=== PATIENT | female | born 1970 | race Caucasian/White ===

== ENCOUNTER 2020-11-22 19:52 | Inpatient (IN) ==
[2020-11-22] MEDS ORDERED: SODIUM CHLORIDE 0.9% 1,000 ML IV STA (20:12)
[2020-11-22] MEDS ORDERED: HYDROmorphone 2 MG/1 ML VIAL IV STA (20:29)
[2020-11-22 20:30] LABS: Bilirubin,Urine Negative (Negative); Blood, Urine Large mg/dL (Negative); Glucose,Urine (UA) 150 mg/dL (Negative); Ketones,Urine Negative (Negative); Nitrite,Urine Negative (Negative); Protein,Urine >=500 MG/DL; RBC,Urine 2093 /HPF (0-4); Urine Appearance CLOUDY (Clear); Urine Color Red (Yellow); Urine Specific Gravity 1.025 (1.001-1.035); Urine Urobilinogen < 2.0 EU/DL (0.2-1.0)
[2020-11-22 20:33] LABS: Basophils # 0.1 10*3/uL (0.0-0.2); Basophils % 0.4 % (0.0-0.8); Eosinophils # 0.2 10*3/uL (0.0-0.87); Eosinophils % 1.6 % (0.00-10.9); Hematocrit 31.3 VOL% (35.7-47.0); Hemoglobin 9.8 GM/DL (12.0-16.0); Immature Granulocytes % 0.3 %; Immature Granulocytes Absolute 0.05 #; Lymphocytes % 20.8 % (21.3-54.2); Mean Corpuscular HGB Conc 31.3 GM/DL (32-36); Mean Platelet Volume 9.5 FL (9.6-12.0); Monocytes % 6.4 % (1.7-12.7); Neutrophils % 70.5 % (38.7-73.9); Platelet Count 427 T/CUMM (130-400); Red Blood Count 3.77 MC/CUMM (3.8-5.5); Red Cell Distribution Width 14.1 % (9.3-17.3); White Blood Count 14.4 T/CUMM (4-12)
[2020-11-22 20:54] LABS: Alanine Aminotransferase 12 U/L (13-56); Albumin 2.8 G/DL (3.4-5.0); Alkaline Phosphatase 61 U/L (45-117); Aspartate Amino Transferase 8 U/L (0-37); Bilirubin,Total < 0.39 MG/DL (0.2-1.0); Blood Urea Nitrogen 40 MG/DL (7-18); Calcium 8.4 MG/DL (8.5-10.1); Carbon Dioxide 21 MMOL/L (21-32); Estimated Glom Filtration Rate 32 ML/MIN; Glucose 228 MG/DL (74-106); Osmolality,Calculated 291.7 MOS/KG (273-304); Potassium 5.2 MMOL/L (3.5-5.1); Sodium 138 MMOL/L (136-145); Total Protein 7.7 G/DL (6.4-8.2)
[2020-11-22] MEDS ORDERED: cefTRIAXone 1,000 MG in SODIUM CHLORIDE 0.9% 100 ML IV STA (22:17)
[2020-11-23] MEDS: FLUCONAZOLE INJ 400 MG/200 ML PREMIX IV SCH ×2 (00:07→22:19)
[2020-11-23] MEDS ORDERED: GLUCAGON 1 MG VIAL IM PRN (00:34)
[2020-11-23] MEDS ORDERED: DEXTROSE 50% 25 GM/50 ML VIAL IV PRN (00:34)
[2020-11-23] MEDS ORDERED: ENOXAPARIN 40 MG/0.4 ML SYRINGE SUBCUT SCH (01:00)
[2020-11-23] MEDS ORDERED: OXYBUTYNIN 5 MG TABLET PO SCH (01:00)
[2020-11-23] MEDS: MORPHINE 4 MG/1 ML VIAL IV PRN ×3 (03:19→20:22)
[2020-11-23] MEDS: carvediloL 12.5 MG TABLET PO SCH ×3 (03:32→20:22)
[2020-11-23] MEDS: HEPARIN 5,000 UNIT/1 ML VIAL SUBCUT SCH ×2 (04:15→11:23)
[2020-11-23 05:21] LABS: Basophils # 0.1 10*3/uL (0.0-0.2); Basophils % 0.5 % (0.0-0.8); Eosinophils # 0.1 10*3/uL (0.0-0.87); Eosinophils % 1.1 % (0.00-10.9); Hematocrit 30.6 VOL% (35.7-47.0); Hemoglobin 9.7 GM/DL (12.0-16.0); Immature Granulocytes % 0.4 %; Immature Granulocytes Absolute 0.05 #; Lymphocytes # 3.5 10*3/uL (1.4-4.0); Lymphocytes % 30.4 % (21.3-54.2); Mean Corpuscular HGB Conc 31.7 GM/DL (32-36); Mean Corpuscular Volume 85.5 FL (87-102); Monocytes % 7.5 % (1.7-12.7); Neutrophils % 60.1 % (38.7-73.9); Platelet Count 451 T/CUMM (130-400); Red Blood Count 3.58 MC/CUMM (3.8-5.5); White Blood Count 11.4 T/CUMM (4-12)
[2020-11-23 05:49] LABS: Osmolality,Calculated 290.5 MOS/KG (273-304); Potassium 4.6 MMOL/L (3.5-5.1)
[2020-11-23] MEDS ORDERED: MAGNESIUM SULF RIDER 4 GM/100 ML PREMIX IV ONE (08:00)
[2020-11-23] MEDS: PANTOPRAZOLE 40 MG TABLET PO SCH (09:08)
[2020-11-23] MEDS: OXYBUTYNIN 5 MG TABLET PO SCH ×3 (09:08→20:22)
[2020-11-23] MEDS: hydrALAZINE 25 MG TABLET PO SCH ×3 (09:08→20:22)
[2020-11-23] MEDS: INSULIN LISPRO 100 UNIT/ML SUBCUT SCH ×4 (09:09→21:25)
[2020-11-23] MEDS: cefTRIAXone 1,000 MG in SODIUM CHLORIDE 0.9% 100 ML IV SCH (20:22)
[2020-11-24 05:16] LABS: Basophils # 0.1 10*3/uL (0.0-0.2); Basophils % 0.5 % (0.0-0.8); Eosinophils # 0.2 10*3/uL (0.0-0.87); Eosinophils % 2.3 % (0.00-10.9); Hematocrit 27.4 VOL% (35.7-47.0); Hemoglobin 8.3 GM/DL (12.0-16.0); Immature Granulocytes % 0.2 %; Immature Granulocytes Absolute 0.02 #; Lymphocytes # 4.3 10*3/uL (1.4-4.0); Lymphocytes % 42.3 % (21.3-54.2); Mean Corpuscular HGB Conc 30.3 GM/DL (32-36); Mean Corpuscular Volume 86.7 FL (87-102); Mean Platelet Volume 9.9 FL (9.6-12.0); Monocytes % 7.1 % (1.7-12.7); Neutrophils % 47.6 % (38.7-73.9); Platelet Count 416 T/CUMM (130-400); Red Blood Count 3.16 MC/CUMM (3.8-5.5); Red Cell Distribution Width 14.2 % (9.3-17.3); White Blood Count 10.1 T/CUMM (4-12)
[2020-11-24 05:41] LABS: Hypochromasia 1+; Microcytosis 1+
[2020-11-24 05:42] LABS: Calcium 8.5 MG/DL (8.5-10.1); Platelet Estimate Increased; Potassium 5.4 MMOL/L (3.5-5.1)
[2020-11-24] MEDS: MORPHINE 4 MG/1 ML VIAL IV PRN ×4 (06:20→21:37)
[2020-11-24] MEDS: OXYBUTYNIN 5 MG TABLET PO SCH ×3 (09:01→20:43)
[2020-11-24] MEDS: carvediloL 12.5 MG TABLET PO SCH ×2 (09:01→20:42)
[2020-11-24] MEDS: INSULIN LISPRO 100 UNIT/ML SUBCUT SCH ×4 (09:01→20:43)
[2020-11-24] MEDS: PANTOPRAZOLE 40 MG TABLET PO SCH (09:01)
[2020-11-24] MEDS: hydrALAZINE 25 MG TABLET PO SCH ×3 (09:01→20:43)
[2020-11-24] MEDS ORDERED: SODIUM POLYSTYRENE SULFATE 15 GM/60 ML BOTTLE PO ONE (12:41)
[2020-11-24] MEDS: SODIUM CHLORIDE 0.9% 1,000 ML IV SCH (12:59)
[2020-11-24] MEDS: cefTRIAXone 1,000 MG in SODIUM CHLORIDE 0.9% 100 ML IV SCH (20:43)
[2020-11-24] MEDS: FLUCONAZOLE INJ 400 MG/200 ML PREMIX IV SCH (21:36)
[2020-11-25] MEDS: SODIUM CHLORIDE 0.9% 1,000 ML IV SCH ×3 (00:46→14:56)
[2020-11-25] MEDS: MORPHINE 4 MG/1 ML VIAL IV PRN ×4 (02:01→20:21)
[2020-11-25 05:03] LABS: Basophils # 0.1 10*3/uL (0.0-0.2); Basophils % 0.5 % (0.0-0.8); Eosinophils # 0.4 10*3/uL (0.0-0.87); Eosinophils % 3.6 % (0.00-10.9); Hematocrit 26.9 VOL% (35.7-47.0); Hemoglobin 8.4 GM/DL (12.0-16.0); Immature Granulocytes % 0.5 %; Immature Granulocytes Absolute 0.06 #; Lymphocytes # 4.4 10*3/uL (1.4-4.0); Lymphocytes % 37.7 % (21.3-54.2); Mean Corpuscular HGB Conc 31.2 GM/DL (32-36); Mean Corpuscular Volume 84.3 FL (87-102); Mean Platelet Volume 9.4 FL (9.6-12.0); Monocytes % 7.6 % (1.7-12.7); Neutrophils % 50.1 % (38.7-73.9); Platelet Count 366 T/CUMM (130-400); Red Blood Count 3.19 MC/CUMM (3.8-5.5); Red Cell Distribution Width 14.1 % (9.3-17.3); White Blood Count 11.5 T/CUMM (4-12)
[2020-11-25 05:07] LABS: Calcium 8.3 MG/DL (8.5-10.1); Osmolality,Calculated 287.5 MOS/KG (273-304); Potassium 4.1 MMOL/L (3.5-5.1)
[2020-11-25 05:12] LABS: % Iron Saturation 8.5 % (18-50); Ferritin 204.3 ng/ml (8-252)
[2020-11-25 05:25] LABS: Folate 21.54 NG/ML (5.38-24.0)
[2020-11-25] MEDS: INSULIN LISPRO 100 UNIT/ML SUBCUT SCH ×4 (09:59→21:44)
[2020-11-25] MEDS: carvediloL 12.5 MG TABLET PO SCH ×2 (10:01→20:21)
[2020-11-25] MEDS: PANTOPRAZOLE 40 MG TABLET PO SCH (10:01)
[2020-11-25] MEDS: FERROUS SULFATE 325 MG TABLET PO SCH ×2 (10:01→17:36)
[2020-11-25] MEDS: hydrALAZINE 25 MG TABLET PO SCH ×3 (10:01→20:21)
[2020-11-25] MEDS: OXYBUTYNIN 5 MG TABLET PO SCH ×3 (10:01→20:21)
[2020-11-25] MEDS: MAGNESIUM OXIDE 400 MG TABLET PO SCH (20:21)
[2020-11-25] MEDS: cefTRIAXone 1,000 MG in SODIUM CHLORIDE 0.9% 100 ML IV SCH (20:21)
[2020-11-25] MEDS: FLUCONAZOLE INJ 400 MG/200 ML PREMIX IV SCH (21:44)
[2020-11-26] MEDS: SODIUM CHLORIDE 0.9% 1,000 ML IV SCH ×2 (04:42→20:18)
[2020-11-26 05:52] LABS: Basophils # 0.1 10*3/uL (0.0-0.2); Basophils % 0.6 % (0.0-0.8); Eosinophils # 0.5 10*3/uL (0.0-0.87); Eosinophils % 4.2 % (0.00-10.9); Hematocrit 25.9 VOL% (35.7-47.0); Hemoglobin 8.2 GM/DL (12.0-16.0); Immature Granulocytes % 0.5 %; Immature Granulocytes Absolute 0.05 #; Lymphocytes # 3.7 10*3/uL (1.4-4.0); Lymphocytes % 34.3 % (21.3-54.2); Mean Corpuscular HGB Conc 31.7 GM/DL (32-36); Mean Corpuscular Volume 84.1 FL (87-102); Mean Platelet Volume 9.6 FL (9.6-12.0); Monocytes % 7.8 % (1.7-12.7); Neutrophils % 52.6 % (38.7-73.9); Platelet Count 362 T/CUMM (130-400); Red Blood Count 3.08 MC/CUMM (3.8-5.5); White Blood Count 10.8 T/CUMM (4-12)
[2020-11-26 06:14] LABS: Calcium 8.3 MG/DL (8.5-10.1); Osmolality,Calculated 287.4 MOS/KG (273-304); Potassium 4.3 MMOL/L (3.5-5.1)
[2020-11-26] MEDS ORDERED: MAGNESIUM SULF RIDER 2 GM/50 ML PREMIX IV ONE (07:47)
[2020-11-26] MEDS: INSULIN LISPRO 100 UNIT/ML SUBCUT SCH ×4 (08:24→20:21)
[2020-11-26] MEDS: FENOFIBRATE 145 MG TABLET PO SCH (08:28)
[2020-11-26] MEDS: hydrALAZINE 25 MG TABLET PO SCH ×3 (08:28→20:27)
[2020-11-26] MEDS: GLIMEPIRIDE 4 MG TABLET PO SCH (08:29)
[2020-11-26] MEDS: OXYBUTYNIN 5 MG TABLET PO SCH ×3 (08:29→20:27)
[2020-11-26] MEDS: MAGNESIUM OXIDE 400 MG TABLET PO SCH ×2 (08:29→20:26)
[2020-11-26] MEDS: FERROUS SULFATE 325 MG TABLET PO SCH ×2 (08:30→16:23)
[2020-11-26] MEDS: PANTOPRAZOLE 40 MG TABLET PO SCH (08:30)
[2020-11-26] MEDS: ASCORBIC ACID 500 MG TABLET PO SCH (08:30)
[2020-11-26] MEDS: carvediloL 25 MG TABLET PO SCH ×2 (08:30→17:22)
[2020-11-26] MEDS: FAMOTIDINE 20 MG TABLET PO SCH ×2 (08:30→20:27)
[2020-11-26] MEDS: MORPHINE 4 MG/1 ML VIAL IV PRN ×2 (11:10→20:25)
[2020-11-26] MEDS: cefTRIAXone 1,000 MG in SODIUM CHLORIDE 0.9% 100 ML IV SCH (20:19)
[2020-11-26] MEDS ORDERED: SERTRALINE 100 MG TABLET PO SCH (21:00)
[2020-11-26] MEDS: FLUCONAZOLE INJ 400 MG/200 ML PREMIX IV SCH (22:01)
[2020-11-27] MEDS: INSULIN LISPRO 100 UNIT/ML SUBCUT SCH ×2 (08:11→12:34)
[2020-11-27] MEDS ORDERED: SODIUM CHLORIDE 0.9% 1,000 ML IV ONE (10:14)
[2020-11-27] MEDS: MAGNESIUM OXIDE 400 MG TABLET PO SCH (10:42)
[2020-11-27] MEDS: FERROUS SULFATE 325 MG TABLET PO SCH (10:42)
[2020-11-27] MEDS: GLIMEPIRIDE 4 MG TABLET PO SCH (10:42)
[2020-11-27] MEDS: OXYBUTYNIN 5 MG TABLET PO SCH (10:43)
[2020-11-27] MEDS: ASCORBIC ACID 500 MG TABLET PO SCH (10:43)
[2020-11-27] MEDS: carvediloL 25 MG TABLET PO SCH (10:43)
[2020-11-27] MEDS: PANTOPRAZOLE 40 MG TABLET PO SCH (10:43)
[2020-11-27] MEDS: FAMOTIDINE 20 MG TABLET PO SCH (10:43)
[2020-11-27] MEDS: hydrALAZINE 25 MG TABLET PO SCH (10:43)
[2020-11-27] MEDS: FENOFIBRATE 145 MG TABLET PO SCH (10:43)
[2020-11-27 11:21] LABS: Basophils # 0.1 10*3/uL (0.0-0.2); Basophils % 0.6 % (0.0-0.8); Eosinophils # 0.4 10*3/uL (0.0-0.87); Eosinophils % 3.6 % (0.00-10.9); Hematocrit 27.9 VOL% (35.7-47.0); Hemoglobin 8.6 GM/DL (12.0-16.0); Immature Granulocytes % 0.6 %; Immature Granulocytes Absolute 0.06 #; Lymphocytes % 27.8 % (21.3-54.2); Mean Corpuscular HGB Conc 30.8 GM/DL (32-36); Mean Corpuscular Volume 84.8 FL (87-102); Mean Platelet Volume 9.5 FL (9.6-12.0); Neutrophils % 61.4 % (38.7-73.9); Platelet Count 424 T/CUMM (130-400); Red Blood Count 3.29 MC/CUMM (3.8-5.5); Red Cell Distribution Width 14.3 % (9.3-17.3); White Blood Count 10.8 T/CUMM (4-12)
[2020-11-27 11:40] LABS: Alanine Aminotransferase 11 U/L (13-56); Albumin 2.1 G/DL (3.4-5.0); Alkaline Phosphatase 60 U/L (45-117); Aspartate Amino Transferase 8 U/L (0-37); Bilirubin,Total < 0.39 MG/DL (0.2-1.0); Blood Urea Nitrogen 27 MG/DL (7-18); Calcium 8.6 MG/DL (8.5-10.1); Carbon Dioxide 22 MMOL/L (21-32); Estimated Glom Filtration Rate 36 ML/MIN; Glucose 156 MG/DL (74-106); Osmolality,Calculated 288.3 MOS/KG (273-304); Potassium 4.8 MMOL/L (3.5-5.1); Sodium 141 MMOL/L (136-145); Total Protein 6.6 G/DL (6.4-8.2)
[2020-11-27 12:07] VITALS: BP 142/75
[2020-11-27] MEDS: SODIUM CHLORIDE 0.9% 1,000 ML IV SCH (12:52)
== END 2020-11-27 13:31 | disposition home or self-care (01) | DRG 466 ==
LOC: EDUNIT# → EDBD → N.ED 19:52 → SUATTDRO 11-23 00:33 → N.EDINP 11-23 00:33 → N.3E 11-23 01:56
PROVIDERS: ADMIT Internal Medicine; ATTEND Student in an Organized Health Care Education/Training Program

== ENCOUNTER 2020-12-17 10:09 | Inpatient (IN) ==
[2020-12-17] MEDS ORDERED: SODIUM CHLORIDE 0.9% 1,000 ML IV STA (10:26)
[2020-12-17] MEDS ORDERED: PIPERACILLIN/TAZOBACTAM 3,375 MG in SODIUM CHLORIDE 0.9% 100 ML IV STA (10:26)
[2020-12-17] MEDS ORDERED: ONDANSETRON 4 MG/2 ML VIAL IV STA (10:49)
[2020-12-17] MEDS ORDERED: HYDROmorphone 2 MG/1 ML VIAL IV STA (10:49)
[2020-12-17] MEDS ORDERED: ONDANSETRON 4 MG/2 ML VIAL ONE (10:52)
[2020-12-17] MEDS ORDERED: HYDROmorphone 2 MG/1 ML VIAL ONE (10:52)
[2020-12-17 10:57] LABS: Basophils % 0.6 % (0.0-0.8); Eosinophils % 0.6 % (0.00-10.9); Hematocrit 31.3 VOL% (35.7-47.0); Immature Granulocytes % 0.1 %; Immature Granulocytes Absolute 0.01 #; Lymphocytes # 1.8 10*3/uL (1.4-4.0); Lymphocytes % 25.2 % (21.3-54.2); Mean Corpuscular HGB Conc 31.9 GM/DL (32-36); Mean Corpuscular Volume 83.2 FL (87-102); Mean Platelet Volume 10.1 FL (9.6-12.0); Neutrophils % 62.5 % (38.7-73.9); Platelet Count 378 T/CUMM (130-400); Red Blood Count 3.76 MC/CUMM (3.8-5.5); Red Cell Distribution Width 15.2 % (9.3-17.3); White Blood Count 7.1 T/CUMM (4-12)
[2020-12-17 11:10] LABS: Calcium 8.9 MG/DL (8.5-10.1); Potassium 5.6 MMOL/L (3.5-5.1)
[2020-12-17] MEDS ORDERED: PROMETHAZINE 25 MG/1 ML VIAL ONE (11:36)
[2020-12-17] MEDS ORDERED: PROMETHAZINE 25 MG/1 ML VIAL IM STA (11:44)
[2020-12-17 12:57] LABS: Bilirubin,Urine Negative (Negative); Blood, Urine Small mg/dL (Negative); Glucose,Urine (UA) Negative (Negative); Ketones,Urine Negative (Negative); Nitrite,Urine Negative (Negative); Protein,Urine 100 MG/DL; Urine Appearance CLOUDY (Clear); Urine Color Yellow (Yellow); Urine Specific Gravity 1.009 (1.001-1.035); Urine Urobilinogen < 2.0 EU/DL (0.2-1.0)
[2020-12-17] MEDS ORDERED: hydrALAZINE 20 MG/1 ML VIAL IV STA (13:21)
[2020-12-17] MEDS ORDERED: hydrALAZINE 20 MG/1 ML VIAL IV PRN (13:31)
[2020-12-17] MEDS ORDERED: PROMETHAZINE 25 MG/1 ML VIAL IM PRN (13:31)
[2020-12-17] MEDS ORDERED: DEXTROSE 50% 25 GM/50 ML VIAL IV PRN (13:31)
[2020-12-17] MEDS ORDERED: GLUCAGON 1 MG VIAL IM PRN (13:31)
[2020-12-17] MEDS ORDERED: ACETAMINOPHEN 325 MG TABLET PO PRN (13:31)
[2020-12-17] MEDS: ONDANSETRON 4 MG/2 ML VIAL IV PRN ×2 (13:58→19:42)
[2020-12-17] MEDS ORDERED: SODIUM CHLORIDE 0.9% 1,000 ML IV SCH (14:00)
[2020-12-17] MEDS ORDERED: SODIUM POLYSTYRENE SULFATE 15 GM/60 ML BOTTLE PO STA (14:02)
[2020-12-17] MEDS ORDERED: BELLADONNA/OPIUM 30 MG SUPP RECTAL PRN (15:31)
[2020-12-17] MEDS: SODIUM CHLORIDE 0.9% 1,000 ML IV SCH (15:52)
[2020-12-17] MEDS: OXYBUTYNIN 5 MG TABLET PO SCH ×2 (15:52→20:49)
[2020-12-17] MEDS: MIRABEGRON 25 MG PO SCH (16:35)
[2020-12-17] MEDS: INSULIN LISPRO 100 UNIT/ML SUBCUT SCH ×2 (16:52→20:48)
[2020-12-17] MEDS: PIPERACILLIN/TAZOBACTAM 3,375 MG in SODIUM CHLORIDE 0.9% 100 ML IV SCH (17:17)
[2020-12-17] MEDS: HYDROmorphone 2 MG/1 ML VIAL IV PRN (19:43)
[2020-12-17] MEDS: carvediloL 25 MG TABLET PO SCH (20:49)
[2020-12-17] MEDS: SERTRALINE 100 MG TABLET PO SCH (20:49)
[2020-12-18] MEDS: PIPERACILLIN/TAZOBACTAM 3,375 MG in SODIUM CHLORIDE 0.9% 100 ML IV SCH ×3 (01:14→17:21)
[2020-12-18 05:41] LABS: Basophils % 0.4 % (0.0-0.8); Eosinophils % 0.4 % (0.00-10.9); Hematocrit 28.5 VOL% (35.7-47.0); Hemoglobin 8.7 GM/DL (12.0-16.0); Immature Granulocytes % 0.3 %; Immature Granulocytes Absolute 0.02 #; Lymphocytes % 27.5 % (21.3-54.2); Mean Corpuscular HGB Conc 30.5 GM/DL (32-36); Mean Corpuscular Volume 85.6 FL (87-102); Mean Platelet Volume 10.3 FL (9.6-12.0); Monocytes % 11.7 % (1.7-12.7); Neutrophils % 59.7 % (38.7-73.9); Platelet Count 365 T/CUMM (130-400); Red Blood Count 3.33 MC/CUMM (3.8-5.5); Red Cell Distribution Width 15.3 % (9.3-17.3); White Blood Count 7.1 T/CUMM (4-12)
[2020-12-18 05:54] LABS: Calcium 8.3 MG/DL (8.5-10.1); Osmolality,Calculated 294.1 MOS/KG (273-304); Potassium 4.2 MMOL/L (3.5-5.1)
[2020-12-18] MEDS ORDERED: MAGNESIUM SULF RIDER 2 GM/50 ML PREMIX IV PRN (07:38)
[2020-12-18] MEDS ORDERED: MAGNESIUM SULF RIDER 4 GM/100 ML PREMIX IV PRN (07:38)
[2020-12-18] MEDS: INSULIN LISPRO 100 UNIT/ML SUBCUT SCH ×4 (08:34→20:47)
[2020-12-18] MEDS: carvediloL 25 MG TABLET PO SCH ×2 (08:35→20:44)
[2020-12-18] MEDS: ASCORBIC ACID 500 MG TABLET PO SCH (08:35)
[2020-12-18] MEDS: FENOFIBRATE 145 MG TABLET PO SCH (08:35)
[2020-12-18] MEDS: FERROUS GLUCONATE 324 MG TABLET PO SCH (08:35)
[2020-12-18] MEDS: OXYBUTYNIN 5 MG TABLET PO SCH ×3 (08:35→20:44)
[2020-12-18] MEDS: PANTOPRAZOLE 40 MG TABLET PO SCH (08:35)
[2020-12-18] MEDS: HYDROmorphone 2 MG/1 ML VIAL IV PRN ×2 (11:10→20:45)
[2020-12-18] MEDS: SODIUM CHLORIDE 0.9% 1,000 ML IV SCH (11:12)
[2020-12-18] MEDS: MIRABEGRON 25 MG PO SCH (18:48)
[2020-12-18] MEDS: SERTRALINE 100 MG TABLET PO SCH (20:44)
[2020-12-19] MEDS: PIPERACILLIN/TAZOBACTAM 3,375 MG in SODIUM CHLORIDE 0.9% 100 ML IV SCH ×3 (01:46→17:31)
[2020-12-19 05:55] LABS: Basophils # 0.1 10*3/uL (0.0-0.2); Basophils % 0.7 % (0.0-0.8); Eosinophils # 0.2 10*3/uL (0.0-0.87); Eosinophils % 2.8 % (0.00-10.9); Hematocrit 25.4 VOL% (35.7-47.0); Hemoglobin 7.9 GM/DL (12.0-16.0); Immature Granulocytes % 0.4 %; Immature Granulocytes Absolute 0.03 #; Lymphocytes # 1.9 10*3/uL (1.4-4.0); Lymphocytes % 27.9 % (21.3-54.2); Mean Corpuscular HGB Conc 31.1 GM/DL (32-36); Mean Corpuscular Volume 84.4 FL (87-102); Mean Platelet Volume 9.8 FL (9.6-12.0); Monocytes % 10.9 % (1.7-12.7); Neutrophils % 57.3 % (38.7-73.9); Platelet Count 315 T/CUMM (130-400); Red Blood Count 3.01 MC/CUMM (3.8-5.5); Red Cell Distribution Width 15.3 % (9.3-17.3); White Blood Count 6.8 T/CUMM (4-12)
[2020-12-19 06:25] LABS: Osmolality,Calculated 291.3 MOS/KG (273-304); Potassium 4.2 MMOL/L (3.5-5.1)
[2020-12-19] MEDS: SODIUM CHLORIDE 0.9% 1,000 ML IV SCH (06:27)
[2020-12-19] MEDS: OXYBUTYNIN 5 MG TABLET PO SCH ×3 (08:55→21:22)
[2020-12-19] MEDS: PANTOPRAZOLE 40 MG TABLET PO SCH (08:55)
[2020-12-19] MEDS: FENOFIBRATE 145 MG TABLET PO SCH (08:55)
[2020-12-19] MEDS: FERROUS GLUCONATE 324 MG TABLET PO SCH (08:55)
[2020-12-19] MEDS: ASCORBIC ACID 500 MG TABLET PO SCH (08:55)
[2020-12-19] MEDS: carvediloL 25 MG TABLET PO SCH ×2 (08:55→21:22)
[2020-12-19] MEDS: INSULIN LISPRO 100 UNIT/ML SUBCUT SCH ×4 (08:56→21:23)
[2020-12-19] MEDS: HYDROmorphone 2 MG/1 ML VIAL IV PRN ×2 (10:56→21:30)
[2020-12-19] MEDS: SERTRALINE 100 MG TABLET PO SCH (21:22)
[2020-12-20] MEDS: PIPERACILLIN/TAZOBACTAM 3,375 MG in SODIUM CHLORIDE 0.9% 100 ML IV SCH ×2 (02:05→09:02)
[2020-12-20 04:38] LABS: Basophils # 0.1 10*3/uL (0.0-0.2); Basophils % 0.8 % (0.0-0.8); Eosinophils # 0.4 10*3/uL (0.0-0.87); Eosinophils % 5.4 % (0.00-10.9); Hematocrit 25.1 VOL% (35.7-47.0); Hemoglobin 7.9 GM/DL (12.0-16.0); Immature Granulocytes % 0.4 %; Immature Granulocytes Absolute 0.03 #; Lymphocytes # 3.4 10*3/uL (1.4-4.0); Mean Corpuscular HGB Conc 31.5 GM/DL (32-36); Mean Corpuscular Volume 85.4 FL (87-102); Mean Platelet Volume 9.7 FL (9.6-12.0); Monocytes % 9.1 % (1.7-12.7); Neutrophils % 38.3 % (38.7-73.9); Platelet Count 330 T/CUMM (130-400); Red Blood Count 2.94 MC/CUMM (3.8-5.5); Red Cell Distribution Width 15.3 % (9.3-17.3); White Blood Count 7.5 T/CUMM (4-12)
[2020-12-20 04:54] LABS: Calcium 8.3 MG/DL (8.5-10.1); Osmolality,Calculated 291.1 MOS/KG (273-304); Potassium 4.6 MMOL/L (3.5-5.1)
[2020-12-20 05:08] LABS: Eosinophils 4 % (0-10); Lymphocytes 52 % (20-55); Nucleated Red Blood Cells 1 (0-5); Platelet Estimate Adequate; Segmented Neutrophils 34 % (50-85); Total Cells Counted 100
[2020-12-20 05:09] LABS: Atypical Lymphocytes Few; Hypochromasia 1+; Microcytosis 1+
[2020-12-20] MEDS: carvediloL 25 MG TABLET PO SCH ×2 (08:25→21:06)
[2020-12-20] MEDS: FENOFIBRATE 145 MG TABLET PO SCH (08:25)
[2020-12-20] MEDS: FERROUS GLUCONATE 324 MG TABLET PO SCH (08:25)
[2020-12-20] MEDS: ASCORBIC ACID 500 MG TABLET PO SCH (08:25)
[2020-12-20] MEDS: PANTOPRAZOLE 40 MG TABLET PO SCH (08:25)
[2020-12-20] MEDS: OXYBUTYNIN 5 MG TABLET PO SCH ×3 (08:25→21:05)
[2020-12-20] MEDS: SODIUM CHLORIDE 0.9% 1,000 ML IV SCH ×2 (08:26→19:58)
[2020-12-20] MEDS: INSULIN LISPRO 100 UNIT/ML SUBCUT SCH ×4 (08:26→21:09)
[2020-12-20] MEDS: MEROPENEM 500 MG in SODIUM CHLORIDE 0.9% 100 ML IV SCH ×2 (09:59→22:17)
[2020-12-20] MEDS: HYDROmorphone 2 MG/1 ML VIAL IV PRN (18:30)
[2020-12-20] MEDS: SERTRALINE 100 MG TABLET PO SCH (21:05)
[2020-12-21 05:51] LABS: Basophils # 0.1 10*3/uL (0.0-0.2); Basophils % 0.7 % (0.0-0.8); Eosinophils # 0.4 10*3/uL (0.0-0.87); Eosinophils % 5.2 % (0.00-10.9); Hematocrit 28.4 VOL% (35.7-47.0); Hemoglobin 8.8 GM/DL (12.0-16.0); Immature Granulocytes % 0.9 %; Immature Granulocytes Absolute 0.07 #; Lymphocytes # 3.1 10*3/uL (1.4-4.0); Mean Platelet Volume 9.6 FL (9.6-12.0); Monocytes % 8.6 % (1.7-12.7); Neutrophils % 45.6 % (38.7-73.9); Platelet Count 353 T/CUMM (130-400); Red Blood Count 3.38 MC/CUMM (3.8-5.5); Red Cell Distribution Width 15.2 % (9.3-17.3)
[2020-12-21 06:18] LABS: Calcium 7.9 MG/DL (8.5-10.1); Potassium 4.3 MMOL/L (3.5-5.1)
[2020-12-21] MEDS: INSULIN LISPRO 100 UNIT/ML SUBCUT SCH ×4 (08:27→21:23)
[2020-12-21] MEDS: PANTOPRAZOLE 40 MG TABLET PO SCH (08:27)
[2020-12-21] MEDS: ASCORBIC ACID 500 MG TABLET PO SCH (08:27)
[2020-12-21] MEDS: FERROUS GLUCONATE 324 MG TABLET PO SCH (08:27)
[2020-12-21] MEDS: FENOFIBRATE 145 MG TABLET PO SCH (08:27)
[2020-12-21] MEDS: OXYBUTYNIN 5 MG TABLET PO SCH ×3 (08:28→21:23)
[2020-12-21] MEDS: carvediloL 25 MG TABLET PO SCH ×2 (08:28→21:23)
[2020-12-21] MEDS: MEROPENEM 500 MG in SODIUM CHLORIDE 0.9% 100 ML IV SCH (09:27)
[2020-12-21] MEDS: HYDROmorphone 2 MG/1 ML VIAL IV PRN ×3 (09:32→21:24)
[2020-12-21] MEDS ORDERED: ERTAPENEM 1,000 MG in SODIUM CHLORIDE 0.9% 100 ML IV SCH (13:00)
[2020-12-21] MEDS: ONDANSETRON 4 MG/2 ML VIAL IV PRN (15:41)
[2020-12-21] MEDS: SERTRALINE 100 MG TABLET PO SCH (21:23)
[2020-12-22 05:44] LABS: Basophils # 0.1 10*3/uL (0.0-0.2); Basophils % 0.6 % (0.0-0.8); Eosinophils # 0.5 10*3/uL (0.0-0.87); Eosinophils % 5.2 % (0.00-10.9); Hematocrit 27.2 VOL% (35.7-47.0); Hemoglobin 8.5 GM/DL (12.0-16.0); Immature Granulocytes % 0.8 %; Immature Granulocytes Absolute 0.07 #; Lymphocytes # 4.3 10*3/uL (1.4-4.0); Lymphocytes % 47.3 % (21.3-54.2); Mean Corpuscular HGB Conc 31.3 GM/DL (32-36); Mean Corpuscular Volume 84.7 FL (87-102); Mean Platelet Volume 9.1 FL (9.6-12.0); Monocytes % 7.4 % (1.7-12.7); Neutrophils % 38.7 % (38.7-73.9); Platelet Count 354 T/CUMM (130-400); Red Blood Count 3.21 MC/CUMM (3.8-5.5); Red Cell Distribution Width 15.2 % (9.3-17.3)
[2020-12-22 05:58] LABS: Calcium 8.2 MG/DL (8.5-10.1); Osmolality,Calculated 290.1 MOS/KG (273-304); Potassium 4.6 MMOL/L (3.5-5.1)
[2020-12-22 06:10] LABS: Atypical Lymphocytes Few; Eosinophils 6 % (0-10); Hypochromasia 1+; Lymphocytes 47 % (20-55); Microcytosis 1+; Platelet Estimate Adequate; Segmented Neutrophils 40 % (50-85); Total Cells Counted 100
[2020-12-22] MEDS: INSULIN LISPRO 100 UNIT/ML SUBCUT SCH (08:56)
[2020-12-22] MEDS: FENOFIBRATE 145 MG TABLET PO SCH (08:57)
[2020-12-22] MEDS: carvediloL 25 MG TABLET PO SCH (08:57)
[2020-12-22] MEDS: ASCORBIC ACID 500 MG TABLET PO SCH (08:57)
[2020-12-22] MEDS: PANTOPRAZOLE 40 MG TABLET PO SCH (08:57)
[2020-12-22] MEDS: FERROUS GLUCONATE 324 MG TABLET PO SCH (08:57)
[2020-12-22] MEDS: OXYBUTYNIN 5 MG TABLET PO SCH (08:58)
[2020-12-22 11:06] VITALS: BP 128/90
== END 2020-12-22 11:40 | disposition home health service (06) | DRG 466 ==
LOC: N.ED 10:09 → SUATTDRO 13:30 → N.EDINP 13:30 → N.3E 15:00
PROVIDERS: ADMIT Internal Medicine; ATTEND Internal Medicine

== ENCOUNTER 2022-06-12 17:04 | Inpatient (IN) ==
[2022-06-12 17:40] LABS: Basophils # 0.1 10*3/uL (0.0-0.2); Basophils % 0.4 % (0.0-0.8); Eosinophils # 0.2 10*3/uL (0.0-0.87); Eosinophils % 1.5 % (0.00-10.9); Hematocrit 27.2 VOL% (35.7-47.0); Immature Granulocytes % 0.4 %; Immature Granulocytes Absolute 0.05 #; Lymphocytes # 2.5 10*3/uL (1.4-4.0); Lymphocytes % 21.6 % (21.3-54.2); Mean Corpuscular HGB Conc 33.1 GM/DL (32-36); Mean Corpuscular Volume 78.4 FL (87-102); Mean Platelet Volume 10.6 FL (9.6-12.0); Monocytes # 0.8 10*3/uL (0.11-0.8); Monocytes % 7.2 % (1.7-12.7); Neutrophils % 68.9 % (38.7-73.9); Platelet Count 256 T/CUMM (130-400); Red Blood Count 3.47 MC/CUMM (3.8-5.5); Red Cell Distribution Width 14.2 % (9.3-17.3); White Blood Count 11.7 T/CUMM (4-12)
[2022-06-12 18:04] LABS: Albumin 3.5 G/DL (3.4-5.0); Bilirubin,Total 0.4 MG/DL (0.20-1.00); Calcium 10.3 MG/DL (8.5-10.1); Osmolality,Calculated 324.4 MOS/KG (273-304); Potassium 3.1 MMOL/L (3.5-5.1)
[2022-06-12 18:39] LABS: Urine Appearance Turbid (Clear); Urine Color Brown (Yellow)
[2022-06-12 18:40] LABS: Amorphous Crystals,Urine Many /HPF (Few); Bilirubin,Urine Moderate mg/dL (Negative); Blood, Urine Small mg/dL (Negative); Glucose,Urine (UA) Negative (Negative); Ketones,Urine Trace mg/dL (Negative); Nitrite,Urine Positive (Negative); Protein,Urine >=300 mg/dL (Negative); RBC,Urine 1 /HPF (0-4); Squamous Epithelial Cell,Urine Few /HPF (0-10); Triple Phosphate Crystal,Urine Moderate /HPF (Few); Urine Specific Gravity 1.015 (1.001-1.035); Urine pH > 9.0 (4.5-8.0)
[2022-06-12 18:41] LABS: Bacteria,Urine Many /HPF (Few)
[2022-06-12] MEDS ORDERED: SODIUM CHLORIDE 0.9% 500 ML IV STA (19:57)
[2022-06-12] MEDS ORDERED: ACETAMINOPHEN 325 MG TABLET PO PRN (20:08)
[2022-06-12] MEDS ORDERED: ALUMINUM/MAGNES/SIMETH MAX STR 30 ML UDCUP PO PRN (20:08)
[2022-06-12] MEDS ORDERED: POTASSIUM CHLORIDE 20 MEQ TABLET PO STA (20:46)
[2022-06-12] MEDS ORDERED: DEXTROSE 10% 250 ML BAG IV PRN (20:56)
[2022-06-12] MEDS ORDERED: GLUCAGON 1 MG VIAL IM PRN (20:56)
[2022-06-12] MEDS ORDERED: MELATONIN 3 MG TABLET PO PRN (21:15)
[2022-06-12] MEDS: hydrALAZINE 25 MG TABLET PO SCH (21:35)
[2022-06-12] MEDS: DOCUSATE SODIUM 100 MG CAPSULE PO SCH (21:36)
[2022-06-12] MEDS: HEPARIN 5,000 UNIT/1 ML VIAL SUBCUT SCH (21:36)
[2022-06-12] MEDS: OXYBUTYNIN 5 MG TABLET PO SCH (21:36)
[2022-06-12] MEDS: INSULIN REGULAR 100 UNIT/ML SUBCUT SCH (21:45)
[2022-06-12] MEDS: FUROSEMIDE 40 MG TABLET PO SCH (21:46)
[2022-06-12] MEDS: ONDANSETRON 4 MG/2 ML VIAL IV PRN (23:52)
[2022-06-13] MEDS: hydrALAZINE 25 MG TABLET PO SCH ×3 (05:33→20:27)
[2022-06-13 05:55] LABS: Basophils # 0.1 10*3/uL (0.0-0.2); Basophils % 0.6 % (0.0-0.8); Eosinophils # 0.4 10*3/uL (0.0-0.87); Eosinophils % 3.6 % (0.00-10.9); Hematocrit 25.1 VOL% (35.7-47.0); Hemoglobin 8.2 GM/DL (12.0-16.0); Immature Granulocytes % 0.5 %; Immature Granulocytes Absolute 0.05 #; Lymphocytes % 28.5 % (21.3-54.2); Mean Corpuscular HGB Conc 32.7 GM/DL (32-36); Mean Corpuscular Volume 80.2 FL (87-102); Mean Platelet Volume 10.2 FL (9.6-12.0); Monocytes # 0.9 10*3/uL (0.11-0.8); Monocytes % 8.4 % (1.7-12.7); Neutrophils % 58.4 % (38.7-73.9); Platelet Count 237 T/CUMM (130-400); Red Blood Count 3.13 MC/CUMM (3.8-5.5); Red Cell Distribution Width 14.3 % (9.3-17.3); White Blood Count 10.4 T/CUMM (4-12)
[2022-06-13 07:04] LABS: Calcium 9.7 MG/DL (8.5-10.1); Osmolality,Calculated 326.7 MOS/KG (273-304); Potassium 2.9 MMOL/L (3.5-5.1); Thyroid Stimulating Hormone 1.31 uIU/ml (0.358-3.74)
[2022-06-13] MEDS: ONDANSETRON 4 MG/2 ML VIAL IV PRN (08:03)
[2022-06-13] MEDS: PANTOPRAZOLE 40 MG TABLET PO SCH (08:48)
[2022-06-13] MEDS: DOCUSATE SODIUM 100 MG CAPSULE PO SCH ×2 (08:48→21:30)
[2022-06-13] MEDS: ASPIRIN EC 81 MG TABLET PO SCH (08:48)
[2022-06-13] MEDS: CALCIUM (CARBONATE)/VITAMIN D 600 MG-400 UNIT TABLET PO SCH (08:48)
[2022-06-13] MEDS: HEPARIN 5,000 UNIT/1 ML VIAL SUBCUT SCH ×2 (08:48→21:30)
[2022-06-13] MEDS: carvediloL 25 MG TABLET PO SCH ×2 (08:48→20:27)
[2022-06-13] MEDS: ISOSORBIDE MONONITRATE 30 MG TABLET PO SCH (08:48)
[2022-06-13] MEDS: FUROSEMIDE 40 MG TABLET PO SCH (08:49)
[2022-06-13] MEDS: OXYBUTYNIN 5 MG TABLET PO SCH ×4 (08:49→21:30)
[2022-06-13] MEDS ORDERED: metOLazone 5 MG TABLET PO SCH (09:00)
[2022-06-13] MEDS: INSULIN REGULAR 100 UNIT/ML SUBCUT SCH ×4 (09:44→20:28)
[2022-06-13] MEDS ORDERED: SODIUM CHLORIDE 0.9% 1,000 ML IV SCH (10:30)
[2022-06-13] MEDS ORDERED: PROMETHAZINE INJ 12.5 MG in SODIUM CHLORIDE 0.9% 50 ML IV PRN (11:02)
[2022-06-13] MEDS ORDERED: cefTRIAXone 1,000 MG in SODIUM CHLORIDE 0.9% 100 ML IV SCH (21:00)
[2022-06-14] MEDS: hydrALAZINE 25 MG TABLET PO SCH ×3 (05:17→21:31)
[2022-06-14 06:30] LABS: Basophils # 0.1 10*3/uL (0.0-0.2); Basophils % 0.6 % (0.0-0.8); Eosinophils # 0.4 10*3/uL (0.0-0.87); Eosinophils % 4.4 % (0.00-10.9); Hematocrit 25.5 VOL% (35.7-47.0); Hemoglobin 8.3 GM/DL (12.0-16.0); Immature Granulocytes % 0.5 %; Immature Granulocytes Absolute 0.04 #; Lymphocytes # 2.1 10*3/uL (1.4-4.0); Lymphocytes % 25.3 % (21.3-54.2); Mean Corpuscular HGB Conc 32.5 GM/DL (32-36); Mean Corpuscular Volume 81.2 FL (87-102); Mean Platelet Volume 9.9 FL (9.6-12.0); Monocytes # 0.9 10*3/uL (0.11-0.8); Monocytes % 10.3 % (1.7-12.7); Neutrophils % 58.9 % (38.7-73.9); Platelet Count 225 T/CUMM (130-400); Red Blood Count 3.14 MC/CUMM (3.8-5.5); Red Cell Distribution Width 14.1 % (9.3-17.3); White Blood Count 8.4 T/CUMM (4-12)
[2022-06-14 06:42] LABS: Calcium 9.6 MG/DL (8.5-10.1)
[2022-06-14] MEDS: INSULIN REGULAR 100 UNIT/ML SUBCUT SCH ×4 (07:30→21:31)
[2022-06-14] MEDS: ASPIRIN EC 81 MG TABLET PO SCH (09:52)
[2022-06-14] MEDS: carvediloL 25 MG TABLET PO SCH ×2 (09:53→21:31)
[2022-06-14] MEDS: DOCUSATE SODIUM 100 MG CAPSULE PO SCH ×2 (09:53→21:31)
[2022-06-14] MEDS: OXYBUTYNIN 5 MG TABLET PO SCH ×3 (09:53→21:31)
[2022-06-14] MEDS: CALCIUM (CARBONATE)/VITAMIN D 600 MG-400 UNIT TABLET PO SCH (09:53)
[2022-06-14] MEDS: HEPARIN 5,000 UNIT/1 ML VIAL SUBCUT SCH ×2 (09:53→21:31)
[2022-06-14] MEDS: PANTOPRAZOLE 40 MG TABLET PO SCH (09:54)
[2022-06-14] MEDS: ISOSORBIDE MONONITRATE 30 MG TABLET PO SCH (09:54)
[2022-06-14] MEDS ORDERED: BUPIVACAINE MPF 0.25% 10 ML VIAL ONE (10:48)
[2022-06-14] MEDS ORDERED: LIDOCAINE 1%/EPI INJ 20 ML VIAL ONE (10:48)
[2022-06-14 11:15] LABS: % Iron Saturation 27.6 % (18-50); Ferritin 284.8 ng/mL (8-252)
[2022-06-14 11:25] LABS: Folate 22.86 NG/ML (5.38-24.0)
[2022-06-14] MEDS ORDERED: SODIUM CHLORIDE 0.9% 250 ML IV SCH (11:30)
[2022-06-14] MEDS ORDERED: MIDAZOLAM 2 MG/2 ML VIAL ONE (12:10)
[2022-06-14] MEDS ORDERED: fentaNYL 100 MCG/2 ML VIAL ONE (12:10)
[2022-06-14 12:17] LABS: Hepatitis B Core IgM Quant < 0.05 Index; Hepatitis B Surface Ag Quant < 0.10 Index; Hepatitis B Surface Ag Result Non-Reactive (NonReactive); Hepatitis C Virus Ab Quant 0.07 Index; Hepatitis C Virus Ab Result Non-Reactive (NonReactive)
[2022-06-14] MEDS ORDERED: LIDOCAINE 2% 5 ML VIAL ONE (12:38)
[2022-06-14] MEDS ORDERED: propofoL 200 MG/20 ML VIAL IV ONE (12:38)
[2022-06-14] MEDS ORDERED: HEPARIN 10,000 UNIT/10 ML VIAL IV PRN (14:29)
[2022-06-15 05:03] LABS: Basophils % 0.4 % (0.0-0.8); Eosinophils # 0.4 10*3/uL (0.0-0.87); Eosinophils % 3.5 % (0.00-10.9); Hematocrit 27.6 VOL% (35.7-47.0); Hemoglobin 8.7 GM/DL (12.0-16.0); Immature Granulocytes % 0.6 %; Immature Granulocytes Absolute 0.06 #; Lymphocytes # 2.5 10*3/uL (1.4-4.0); Lymphocytes % 25.5 % (21.3-54.2); Mean Corpuscular HGB Conc 31.5 GM/DL (32-36); Mean Corpuscular Volume 83.9 FL (87-102); Mean Platelet Volume 10.2 FL (9.6-12.0); Monocytes # 1.2 10*3/uL (0.11-0.8); Monocytes % 12.3 % (1.7-12.7); Neutrophils % 57.7 % (38.7-73.9); Platelet Count 240 T/CUMM (130-400); Red Blood Count 3.29 MC/CUMM (3.8-5.5); Red Cell Distribution Width 14.2 % (9.3-17.3); White Blood Count 9.9 T/CUMM (4-12)
[2022-06-15 05:18] LABS: Alanine Aminotransferase 16 U/L (13-56); Albumin 2.8 G/DL (3.4-5.0); Alkaline Phosphatase 65 U/L (45-117); Aspartate Amino Transferase 22 U/L (0-37); Bilirubin,Total < 0.39 MG/DL (0.20-1.00); Blood Urea Nitrogen 77 MG/DL (7-18); Calcium 8.5 MG/DL (8.5-10.1); Carbon Dioxide 26 MMOL/L (21-32); Chloride 103 MMOL/L (98-107); Glucose 112 MG/DL (74-106); Osmolality,Calculated 300.5 MOS/KG (273-304); Potassium 3.3 MMOL/L (3.5-5.1); Sodium 139 MMOL/L (136-145); Total Protein 7.4 G/DL (6.4-8.2)
[2022-06-15] MEDS: hydrALAZINE 25 MG TABLET PO SCH ×3 (05:23→21:21)
[2022-06-15] MEDS: ONDANSETRON 4 MG/2 ML VIAL IV PRN (05:42)
[2022-06-15] MEDS: INSULIN REGULAR 100 UNIT/ML SUBCUT SCH ×4 (08:06→21:20)
[2022-06-15] MEDS: PANTOPRAZOLE 40 MG TABLET PO SCH (08:30)
[2022-06-15] MEDS: ASPIRIN EC 81 MG TABLET PO SCH (08:30)
[2022-06-15] MEDS: DOCUSATE SODIUM 100 MG CAPSULE PO SCH ×2 (08:31→21:21)
[2022-06-15] MEDS: ISOSORBIDE MONONITRATE 30 MG TABLET PO SCH (08:31)
[2022-06-15] MEDS: OXYBUTYNIN 5 MG TABLET PO SCH ×3 (08:31→21:21)
[2022-06-15] MEDS: HEPARIN 5,000 UNIT/1 ML VIAL SUBCUT SCH ×2 (08:33→21:21)
[2022-06-15] MEDS: CALCIUM (CARBONATE)/VITAMIN D 600 MG-400 UNIT TABLET PO SCH (08:36)
[2022-06-15] MEDS: carvediloL 25 MG TABLET PO SCH ×2 (08:37→21:21)
[2022-06-15] MEDS: ZINC OXIDE PASTE 113 GM TUBE TOP SCH (21:21)
[2022-06-16] MEDS: hydrALAZINE 25 MG TABLET PO SCH ×3 (04:50→20:27)
[2022-06-16 06:25] LABS: Calcium 8.8 MG/DL (8.5-10.1); Osmolality,Calculated 279.1 MOS/KG (273-304); Potassium 4.6 MMOL/L (3.5-5.1)
[2022-06-16] MEDS: HEPARIN 5,000 UNIT/1 ML VIAL SUBCUT SCH ×2 (08:34→20:26)
[2022-06-16] MEDS: OXYBUTYNIN 5 MG TABLET PO SCH ×3 (08:35→20:27)
[2022-06-16] MEDS: PANTOPRAZOLE 40 MG TABLET PO SCH (08:35)
[2022-06-16] MEDS: ASPIRIN EC 81 MG TABLET PO SCH (08:35)
[2022-06-16] MEDS: CALCIUM (CARBONATE)/VITAMIN D 600 MG-400 UNIT TABLET PO SCH (08:35)
[2022-06-16] MEDS: ISOSORBIDE MONONITRATE 30 MG TABLET PO SCH (08:35)
[2022-06-16] MEDS: DOCUSATE SODIUM 100 MG CAPSULE PO SCH ×2 (08:35→21:36)
[2022-06-16] MEDS: INSULIN REGULAR 100 UNIT/ML SUBCUT SCH ×4 (09:44→20:27)
[2022-06-16] MEDS: carvediloL 25 MG TABLET PO SCH ×2 (09:44→20:27)
[2022-06-16] MEDS: ZINC OXIDE PASTE 113 GM TUBE TOP SCH ×2 (09:49→21:36)
[2022-06-17] MEDS: hydrALAZINE 25 MG TABLET PO SCH ×3 (05:36→21:00)
[2022-06-17] MEDS: INSULIN REGULAR 100 UNIT/ML SUBCUT SCH ×4 (07:28→21:00)
[2022-06-17] MEDS: PANTOPRAZOLE 40 MG TABLET PO SCH (10:05)
[2022-06-17] MEDS: ASPIRIN EC 81 MG TABLET PO SCH (10:05)
[2022-06-17] MEDS: DOCUSATE SODIUM 100 MG CAPSULE PO SCH ×2 (10:05→20:59)
[2022-06-17] MEDS: ISOSORBIDE MONONITRATE 30 MG TABLET PO SCH (10:05)
[2022-06-17] MEDS: carvediloL 25 MG TABLET PO SCH ×2 (10:06→21:00)
[2022-06-17] MEDS: CALCIUM (CARBONATE)/VITAMIN D 600 MG-400 UNIT TABLET PO SCH (10:06)
[2022-06-17] MEDS: OXYBUTYNIN 5 MG TABLET PO SCH ×3 (10:06→21:00)
[2022-06-17] MEDS: ZINC OXIDE PASTE 113 GM TUBE TOP SCH ×2 (10:06→21:03)
[2022-06-17] MEDS: HEPARIN 5,000 UNIT/1 ML VIAL SUBCUT SCH ×2 (10:07→21:00)
[2022-06-18] MEDS: hydrALAZINE 25 MG TABLET PO SCH ×3 (05:24→22:01)
[2022-06-18] MEDS: INSULIN REGULAR 100 UNIT/ML SUBCUT SCH ×4 (08:50→21:59)
[2022-06-18] MEDS: OXYBUTYNIN 5 MG TABLET PO SCH ×3 (11:05→21:59)
[2022-06-18] MEDS: DOCUSATE SODIUM 100 MG CAPSULE PO SCH ×2 (12:30→21:59)
[2022-06-18] MEDS: PANTOPRAZOLE 40 MG TABLET PO SCH (12:30)
[2022-06-18] MEDS: carvediloL 25 MG TABLET PO SCH ×2 (12:30→22:02)
[2022-06-18] MEDS: ASPIRIN EC 81 MG TABLET PO SCH (12:30)
[2022-06-18] MEDS: CALCIUM (CARBONATE)/VITAMIN D 600 MG-400 UNIT TABLET PO SCH (12:30)
[2022-06-18] MEDS: HEPARIN 5,000 UNIT/1 ML VIAL SUBCUT SCH ×2 (12:31→22:00)
[2022-06-18] MEDS: ISOSORBIDE MONONITRATE 30 MG TABLET PO SCH (12:31)
[2022-06-18] MEDS: ZINC OXIDE PASTE 113 GM TUBE TOP SCH ×2 (12:31→22:02)
[2022-06-19] MEDS: hydrALAZINE 25 MG TABLET PO SCH ×2 (05:56→12:57)
[2022-06-19 08:36] LABS: Basophils % 0.3 % (0.0-0.8); Eosinophils # 0.3 10*3/uL (0.0-0.87); Eosinophils % 2.7 % (0.00-10.9); Hematocrit 27.7 VOL% (35.7-47.0); Hemoglobin 8.8 GM/DL (12.0-16.0); Immature Granulocytes % 0.8 %; Immature Granulocytes Absolute 0.09 #; Lymphocytes % 16.8 % (21.3-54.2); Mean Corpuscular HGB Conc 31.8 GM/DL (32-36); Mean Corpuscular Volume 83.7 FL (87-102); Mean Platelet Volume 9.1 FL (9.6-12.0); Monocytes # 0.9 10*3/uL (0.11-0.8); Monocytes % 7.3 % (1.7-12.7); Neutrophils % 72.1 % (38.7-73.9); Platelet Count 245 T/CUMM (130-400); Red Blood Count 3.31 MC/CUMM (3.8-5.5); Red Cell Distribution Width 14.7 % (9.3-17.3); White Blood Count 11.8 T/CUMM (4-12)
[2022-06-19] MEDS: INSULIN REGULAR 100 UNIT/ML SUBCUT SCH ×2 (08:40→12:57)
[2022-06-19 09:01] LABS: Calcium 8.6 MG/DL (8.5-10.1); Osmolality,Calculated 279.2 MOS/KG (273-304); Potassium 4.1 MMOL/L (3.5-5.1)
[2022-06-19] MEDS: CALCIUM (CARBONATE)/VITAMIN D 600 MG-400 UNIT TABLET PO SCH (10:28)
[2022-06-19] MEDS: ASPIRIN EC 81 MG TABLET PO SCH (10:28)
[2022-06-19] MEDS: OXYBUTYNIN 5 MG TABLET PO SCH (10:28)
[2022-06-19] MEDS: ISOSORBIDE MONONITRATE 30 MG TABLET PO SCH (10:28)
[2022-06-19] MEDS: carvediloL 25 MG TABLET PO SCH (10:28)
[2022-06-19] MEDS: DOCUSATE SODIUM 100 MG CAPSULE PO SCH (10:28)
[2022-06-19] MEDS: PANTOPRAZOLE 40 MG TABLET PO SCH (10:28)
[2022-06-19] MEDS: HEPARIN 5,000 UNIT/1 ML VIAL SUBCUT SCH (10:29)
[2022-06-19] MEDS: ZINC OXIDE PASTE 113 GM TUBE TOP SCH (10:29)
[2022-06-19 13:23] VITALS: BP 120/75
== END 2022-06-19 14:08 | disposition home or self-care (01) | DRG 469 ==
LOC: N.ED 17:04 → SUATTDRO 20:08 → N.EDINP 20:08 → N.TELES 22:40
PROVIDERS: ADMIT Internal Medicine; ATTEND Emergency Medicine